=== PATIENT | female | born 1965 | race Caucasian/White ===

== ENCOUNTER → 2020-04-11 | Outpatient (CLI) | payer OTHER | LOC: CAT 02-29 09:15 | PROVIDERS: ATTEND Family Medicine | DX: Z13.6 Encounter for screening for cardiovascular disorders (principal); I25.10 Atherosclerotic heart disease of native coronary artery without angina pectoris; E78.00 Pure hypercholesterolemia, unspecified ==

== ENCOUNTER → 2020-05-01 | Outpatient (CLI) | payer OTHER | LOC: LAB 09:03 | PROVIDERS: ATTEND Family Medicine | DX: Z20.828 Contact with and (suspected) exposure to other viral communicable diseases (principal) ==

== ENCOUNTER 2020-05-19 13:47 | Emergency (ER) | payer OTHER ==
[~2020-05-19] VITALS: Ht 167.6 cm; Wt 61.2 kg
[2020-05-19] MEDS ORDERED: SERTRALINE HCL25 MG PO (14:02)
[2020-05-19] MEDS ORDERED: SUPER THERAVIT1 EACH PO (14:03)
[2020-05-19] MEDS ORDERED: TAMSULOSIN HCL0.4 MG PO (14:03)
[2020-05-19 15:00] LABS: URINE BILIRUBIN NEGATIVE (Negative); URINE BLOOD TRACE (Negative); URINE CLARITY CLEAR; URINE COLOR YELLOW; URINE GLUCOSE-RANDOM* NEGATIVE (Negative); URINE KETONES NEGATIVE (Negative); URINE LEUKOCYTES-REFLEX NEGATIVE (Negative); URINE NITRITE-REFLEX NEGATIVE (Negative); URINE PROTEIN (DIPSTICK) NEGATIVE (Negative); URINE SPECIFIC GRAVITY <= 1.005 (1.005-1.035); URINE UROBILINOGEN 0.2 E.U./dl (0.2-1.0)
[2020-05-19 16:43] VITALS: BP 151/93
== END 2020-05-19 16:45 | disposition home or self-care (01) ==
LOC: ER 13:47
PROVIDERS: Nurse Practitioner
DX: R53.83 Other fatigue (principal); R09.81 Nasal congestion; R42 Dizziness and giddiness; R30.0 Dysuria; R53.1 Weakness; Z20.828 Contact with and (suspected) exposure to other viral communicable diseases; Z79.899 Other long term (current) drug therapy

== ENCOUNTER → 2020-05-22 | Outpatient (CLI) | payer OTHER ==
[~2020-05-22] MED LIST: SERTRALINE HCL25 MG PO; SUPER THERAVIT1 EACH PO; TAMSULOSIN HCL0.4 MG PO
[2020-05-22 11:03] LABS: ABSOLUTE NEUTROPHILS 5.1 thou/uL (1.4-8.2); BASOPHILS 0.3 % (0.0-2.0); EOSINOPHILS 0.3 % (0.0-3.0); HEMATOCRIT 39.7 % (37.0-47.0); HEMOGLOBIN 13.3 gm/dL (12.0-15.0); LYMPHOCYTES 25.7 % (24.0-44.0); MCH 32.9 pg (26.0-34.0); MCHC 33.6 g/dL (28.0-37.0); MCV 97.9 fL (80.0-100.0); MONOCYTES 5.1 % (1.0-8.0); PLATELET COUNT 362 thou/uL (150-400); POLYS 68.6 % (36.0-66.0); RBC 4.06 mil/uL (4.20-5.00); RDW 12.6 % (10.5-14.5); WBC 7.5 thou/uL (4.0-11.0)
[2020-05-22 11:30] LABS: ALBUMIN 4.6 g/dL (3.4-5.0); ANION GAP 7 mmol/L (7-16); BUN 11 mg/dL (7-18); CHLORIDE 104 mmol/L (98-107); CHOLESTEROL 246 mg/dL (<200); CO2 30 mmol/L (21-32); CREATININE 0.7 mg/dL (0.6-1.0); GLUCOSE 107 mg/dL (74-106); HDL CHOLESTEROL 85 mg/dL (>40); LDL CHOLESTEROL 143 mg/dL (<100); POTASSIUM 4.3 mmol/L (3.5-5.1); SGOT 16 U/L (15-37); SGPT 27 U/L (30-65); SODIUM 141 mmol/L (136-145); TC:HDL 2.9 Ratio (Not establshd); TOTAL BILIRUBIN 0.7 mg/dL (0.2-1.0); TOTAL PROTEIN 7.6 g/dL (6.4-8.2); TRIGLYCERIDE 93 mg/dL (<150); VLDL 19 mg/dL (<40)
== END ==
LOC: LAB 10:28
PROVIDERS: ATTEND Family Medicine
DX: E55.9 Vitamin D deficiency, unspecified (principal); Z00.00 Encounter for general adult medical examination without abnormal findings; R53.83 Other fatigue

== ENCOUNTER → 2020-08-16 | Outpatient (CLI) | payer OTHER | LOC: BC 08:12 → EDSTATUS 15:41 | PROVIDERS: ATTEND Family Medicine | DX: Z12.31 Encounter for screening mammogram for malignant neoplasm of breast (principal) ==

== ENCOUNTER → 2020-08-28 | Outpatient (CLI) | payer OTHER | LOC: RAD 11:56 | PROVIDERS: ATTEND Physical Medicine & Rehabilitation Sports Medicine | DX: M19.011 Primary osteoarthritis, right shoulder (principal); M75.81 Other shoulder lesions, right shoulder ==

== ENCOUNTER → 2021-06-01 | Outpatient (CLI) | payer OTHER ==
[2021-06-01 09:38] LABS: ABSOLUTE NEUTROPHILS 3.2 thou/uL (1.4-8.2); BASOPHILS 0.5 % (0.0-2.0); EOSINOPHILS 1.5 % (0.0-3.0); HEMATOCRIT 39.7 % (37.0-47.0); HEMOGLOBIN 13.2 gm/dL (12.0-15.0); LYMPHOCYTES 32.6 % (24.0-44.0); MCH 33.1 pg (26.0-34.0); MCHC 33.4 g/dL (28.0-37.0); MCV 99.3 fL (80.0-100.0); MONOCYTES 7.4 % (1.0-8.0); PLATELET COUNT 267 thou/uL (150-400); RDW 13.3 % (10.5-14.5); WBC 5.5 thou/uL (4.0-11.0)
[2021-06-01 09:52] LABS: ANION GAP 8 mmol/L (7-16); BUN 16 mg/dL (7-18); CALCIUM 9.1 mg/dL (8.5-10.1); CHLORIDE 103 mmol/L (98-107); CHOLESTEROL 227 mg/dL (<200); CO2 29 mmol/L (21-32); CREATININE 0.6 mg/dL (0.6-1.0); GLUCOSE 92 mg/dL (74-106); HDL CHOLESTEROL 86 mg/dL (>40); LDL CHOLESTEROL 128 mg/dL (<100); POTASSIUM 3.9 mmol/L (3.5-5.1); SGOT 15 U/L (15-37); SGPT 25 U/L (30-65); SODIUM 140 mmol/L (136-145); TC:HDL 2.6 Ratio (Not establshd); TOTAL BILIRUBIN 0.7 mg/dL (0.2-1.0); TOTAL PROTEIN 7.3 g/dL (6.4-8.2); TRIGLYCERIDE 66 mg/dL (<150); VLDL 13 mg/dL (<40)
== END ==
LOC: LAB 07:53
PROVIDERS: ATTEND Family Medicine
DX: Z13.220 Encounter for screening for lipoid disorders (principal); Z00.00 Encounter for general adult medical examination without abnormal findings; R53.83 Other fatigue; E55.9 Vitamin D deficiency, unspecified